=== PATIENT | female | born 1960 | race Asian ===

== ENCOUNTER 2017-02-02 10:21 | Day surgery (SDC) | payer BC ==
[2017-02-01 10:00] VITALS: BMI 18.8
[2017-02-02 10:50] VITALS: TEMP 98.7
[2017-02-02] MEDS ORDERED: PROPOFOL 20 ML ONE (10:53)
[2017-02-02 13:23] VITALS: BP 104/52; PULSE 78
== END 2017-02-02 12:15 | disposition home or self-care (01) ==
LOC: FASU-ENDO 10:21
PROVIDERS: ATTEND Internal Medicine Gastroenterology
PROC: 0DJD8ZZ Inspection of Lower Intestinal Tract, Via Natural or Artificial Opening Endoscopic (ICD-10-PCS; principal; 2017-02-02 11:18)
DX: Z12.11 Encounter for screening for malignant neoplasm of colon (principal)